=== PATIENT | female | born 2000 | race Caucasian/White ===

== ENCOUNTER 2022-04-23 18:05 | Emergency (ER) | payer OTHER ==
[2022-04-25 21:08] LABS: CHLAMYDIA TRACHOMATIS, NAA Negative (Negative); NEISSERIA GONORRHOEAE, NAA Negative (Negative)
== END 2022-04-23 22:11 | disposition home or self-care (01) ==
LOC: ER1 18:05
PROVIDERS: Physician Assistant Medical
DX: Z20.2 Contact with and (suspected) exposure to infections with a predominantly sexual mode of transmission (principal); Z3A.33 33 weeks gestation of pregnancy
CPT/HCPCS: 81001; 86696; 99283